=== PATIENT | female | born 1990 | race Caucasian/White ===

== ENCOUNTER 2018-03-22 22:30 | Emergency (ER) | payer BC ==
--- NOTE | 2018-03-22 22:42 | PDOC ---
History of Present Illness - General Chief Complaint: Injury Stated Complaint: RIGHT HAND PAIN Time Seen by Provider: 03/22/18 22:41 History Source: Patient Exam Limitations: No Limitations - History of Present Illness Initial Comments: 03/22/18 22:42 This is a 27-year-old female who slipped and fell landing on her right hand. Patient comes in complaining of pain over the dorsum of the hand primarily over the MCP joints of the third fourth and fifth fingers. Patient did not hit her head did not pass out. PAST MEDICAL HISTORY: no significant history PAST SURGICAL HISTORY: no significant history FAMILY HISTORY: no pertinant history SOCIAL HISTORY: Pt lives with family and is employed. MEDICATIONS: reviewed ALLERGIES: As per nursing notes Review of Systems General: No fevers or chills, no weakness, no weight loss HEENT: No change in vision. No sore throat,. No ear pain CardioVascular: No chest pain or shortness of breath Respiratory:No cough, or wheezing. Gastrointestinal: no nausea, vomitting, diarrhea or constipation, No rectal bleeding Genitourinary: No dysuria, hematuria, or frequency Musculoskeletal: Right hand injury as per history of present illness Neurologic: No headache, vertigo, dizziness or loss of consciousness Psychiatric: nor depression Skin: No rashes or easy bruising Endocrine: no increased thirst or abnormal weight change Allergic: no skin or latex allergy All other systems reviewed and normal GENERAL: The patient is awake, alert, and fully oriented, in no acute distress. HEAD: Normal with no signs of trauma. EYES: Pupils equal, round and reactive to light, extraocular movements intact, sclera anicteric, conjunctiva clear. EXTREMITIES: Right hand there is a contusion over the MCP area of the third fourth and fifth fingers. There is swelling and tenderness to the area with decreased range of motion secondary to the pain. Neurovascular distal is intact. NEUROLOGICAL: Normal speech, normal gait. grossly intact PSYCH: Normal mood, normal affect. SKIN: Warm, Dry, normal turgor, no rashes or lesions noted. 03/22/18 23:17 X-ray no acute fracture dislocation Assessment and plan: This is a 27-year-old female who fell on her right hand causing a contusion to the dorsum of the hand over the third fourth and fifth MCP joint area. Patient had an x-ray that was negative for any acute fractures or pathology. Patient's hand is wrapped and she was discharged home. Past History - Past Medical History Allergies/Adverse Reactions: Allergies Allergy/AdvReac Type Severity Reaction Status Date / Time shyanne Allergy Mild Verified 03/22/18 23:03 Home Medications: Ambulatory Orders NK [No Known Home Medication] 03/22/18 *DC/Admit/Observation/Transfer Diagnosis at time of Disposition: Contusion of right hand Qualifiers: Encounter type: initial encounter Qualified Code(s): S60.221A - Contusion of right hand, initial encounter - Discharge Dispostion Disposition: HOME Condition at time of disposition: Good Admit: No - Referrals - Patient Instructions Additional Instructions: Tylenol or Motrin as needed for pain. Rest ice elevate the area. Return to the emergency department immediately with ANY new, persistent or worsening symptoms. Continue any medications as previously prescribed by your physician. You should follow up with your primary doctor as soon as possible regarding today's emergency department visit. . Please make sure your doctor reviews the results of your emergency evaluation. Thank you for coming to the Emergency Department today for your care. It was a pleasure to see you today. Please note that your evaluation is INCOMPLETE until you follow-up with your doctor. - Post Discharge Activity
[2018-03-22 22:54] VITALS: BP 114/70; PULSE 82; TEMP 98.1
[2018-03-22] MEDS ORDERED: IBUPROFEN 400 MG TABLET (FP) PO ONE ×2 (23:25→23:27)
== END 2018-03-22 23:29 | disposition home or self-care (01) ==
LOC: FER 22:30
DX: S60.221A Contusion of right hand, initial encounter (principal); W01.0XXA Fall on same level from slipping, tripping and stumbling without subsequent striking against object, initial encounter; Y93.9 Activity, unspecified; Y92.9 Unspecified place or not applicable
CPT/HCPCS: 73130-TC-RT-FY; 99281-25